=== PATIENT | female | born 1950 | race Caucasian/White ===

== ENCOUNTER 2017-11-16 15:09 | Emergency (ER) | payer MEDICARE, BC ==
[2017-11-16] MEDS: KETOROLAC 30 MG INJ IM (18:47)
== END 2017-11-16 20:44 | disposition home or self-care (01) ==
LOC: FTE 15:09
DX: S80.01XA Contusion of right knee, initial encounter (principal); S80.02XA Contusion of left knee, initial encounter; W01.0XXA Fall on same level from slipping, tripping and stumbling without subsequent striking against object, initial encounter; Y92.9 Unspecified place or not applicable
CPT/HCPCS: 73562; 73562-50; 96372; 99284-25